=== PATIENT | female | born 1970 | race Caucasian/White ===

== ENCOUNTER → 2019-05-24 13:42 | Outpatient (CLI) | payer OTHER, SELFPAY | PROVIDERS: PCP Internal Medicine; Visit Provider Physician Assistant | DX: J02.9 Acute pharyngitis, unspecified (principal) | CPT/HCPCS: 87070 ==

== ENCOUNTER 2022-01-11 13:19 | Emergency (ER) | payer OTHER, SELFPAY ==
[2022-01-11 13:20] VITALS: BP 139/71; PULSE 91; RESP 17; TEMP 36.6; O2SAT 98; BMI 20.9
--- NOTE | 2022-01-11 13:31 | DI.RAD.S_ITS ---
PROCEDURE: XR HAND RT MIN 3V INDICATIONS: hand pain after injury TECHNIQUE: 3 views of the hand(s) acquired. COMPARISON: None. FINDINGS: Bones: No fractures or dislocations. Carpal bones are normally aligned. No suspicious bony lesions. Soft tissues: No suspicious soft tissue calcifications. IMPRESSION: No acute fracture. No osseous lesion. If symptoms and/or clinical suspicion for pathology persist, further assessment with repeat, or advanced imaging (e.g., CT, MRI, or bone scan) may be helpful for further assessment. Dictated by: Abhilash Corbett M.D. on 01/11/2022 at 14:14 Approved by: Abhilash Corbett M.D. on 01/11/2022 at 14:15
--- NOTE | 2022-01-11 13:45 | ED.UPPEXIN ---
HPI - Extremity Injury (Upper) General Chief Complaint: Extremity Injury, Upper Stated Complaint: R hand pain, Can't make a fist Time Seen by Provider: 01/11/22 13:25 Source: patient Mode of arrival: Ambulatory History of Present Illness HPI narrative: 51-year-old female daily smoker with noncontributory medical history presents with a chief complaint of right hand pain, limited range of motion of her fingers and what she perceives as a bump on the palmar surface of her hand. She states that she initially injured herself and has been having symptoms ever since July when she was pulling a starting cord for an industrial blower and the cord snapped out of her fingers. She states that since then she is been unable to make a fist or fully move her fingers. She had been seen and evaluated initially in the early summer and had an x-ray that was unremarkable. She has had little to no improvement in symptoms and presents today not only for ongoing symptoms but now she has noticed a small bump in the middle of her palm that is somewhat painful. She denies numbness, tingling or weakness. She denies any wrist, elbow or shoulder pain Related Data Allergies Allergy/AdvReac Type Severity Reaction Status Date / Time No Known Drug Allergies Allergy Verified 01/11/22 13:45 Review of Systems Review of Systems Narrative: GENERAL: Denies chills, fatigue, malaise, fever, sweats. HEENT: Denies sinus pain, ear pain, sore throat, difficulty swallowing, dizziness. RESPIRATORY: Denies dyspnea, cough, wheezing, hemoptysis, sputum. CARDIOVASCULAR: Denies chest pain, palpitations, orthopnea, edema, GASTROINTESTINAL: Denies nausea, vomiting, abdominal pain, diarrhea, constipation, melena. : Denies dysuria, frequency, incontinence, hematuria, urinary retention. MUSCULOSKELETAL: See HPI SKIN: Denies rash, skin lesions, or other NEUROLOGIC: Denies weakness, headache, numbness, change in speech, confusion, seizures, incoordination. PSYCHIATRIC: No concerning psychosocial issues. 12 point review of systems is negative except for those stated above Patient History Social History Smoking Status: Current every day smoker Smoking Status: Current every day smoker alcohol intake frequency: holidays/special occasions only Substance Use Type: marijuana Exam Narrative Exam Narrative: GEN: AOx3 and in mild distress EYES: Pupils are equal, round, and reactive to light and accommodation. Extraoccular muscles are intact bilaterally. There is no subconjunctival hemorrhage or exudate. CHEST: Lungs are clear to auscultation bilaterally and free of wheezes, rales, or rhonchi. Heart rate is regular rhythm, there are no murmurs, clicks, rubs, or gallops. There is no chest wall tenderness. ABD: Abdomen is soft and nontender. There is no guarding or rebound. Bowel sounds are normal in all 4 quadrants. There is no mass or organomegaly. EXT: No shoulder, elbow or wrist pain or swelling. Cap refill less than 2 seconds, sensation intact. Patient does have a small, minimally tender, palpable ?bump? in the center of her palmar surface, perhaps in line with her 3rd metacarpal. She does have decreased range of motion of 2nd 3rd and 4th fingers. She is able to flex each at the D IP and to some level at the PIP but is unable to make a fist. She states that this limited range of motion is mechanical and not secondary to pain. SKIN: Warm, pink, and dry. No erythema or rash Initial Vital Signs Initial Vital Signs: Vital Signs Temperature 98 F 01/11/22 13:20 Pulse Rate 91 H 01/11/22 13:20 Respiratory Rate 17 01/11/22 13:20 Blood Pressure 139/71 01/11/22 13:20 Pulse Oximetry 98 01/11/22 13:20 Oxygen Delivery Method 01/11/22 13:20 Course Orders Ordered: ED Orders 01/11/22 13:31 XR hand RT min 3V Stat Consultations Consultation #1: Discussed with on-call orthopedist, primarily to discuss whether splinting may be indicated. There is no recommendation for splinting given the chronicity of her injury. Recommendation to contact the office for follow-up Vital Signs Vital signs: Vital Signs - 8 hr 01/11/22 13:20 Temperature 98 F Pulse Rate 91 H Respiratory Rate 17 Blood Pressure 139/71 Pulse Oximetry 98 Oxygen Delivery Method Room Air Discharge Plan Departure Patient Disposition: Home Clinical Impression: Hand injury Instructions: DI for Hand Injury Activity Restrictions/Additional Instructions: *You have been diagnosed with [chronic right hand injury. Your history and physical exam are largely reassuring and there is no obvious evidence of fracture or dislocation on the x-ray. As we discussed there is some concern about the possibility of a tendinous injury relating to what happened in July, however, as we discussed I spoke with on-call orthopedist and given the chronicity of this injury there is no indication for immediate intervention.] *What to do: *Please continue to take your regular medications as directed. *Please follow up with your primary care provider in 2-3 days, call for an appointment. Let them know you were seen in the Emergency Department and that we ask that you be seen in follow up. We will electronically transmit a record of today's note if your PCP is in our system * also, as we discussed please contact [facility] to schedule follow-up. Let them know you were seen in the emergency department and we would like you seen in follow-up. *Return to Emergency Department if you should have any new, worsening or concerning symptoms, such as [fever greater than 101 F, shaking chills, worsening pain, persistent vomiting or other bothersome symptoms] Radiographic study has been interpreted by an emergency physician. The official diagnosis by radiology will be performed within the next 24 hours and should there be any change in outcome we will notify you of how to proceed. Referrals: Natasha Doty MD [Primary Care Provider] - Julio Forbes MD [Physician] - Visit Report Forms: Patient Portal/API
== END 2022-01-11 14:21 | disposition home or self-care (01) ==
PROVIDERS: Emergency Provider Emergency Medicine; PCP Internal Medicine
DX: S69.91XA Unspecified injury of right wrist, hand and finger(s), initial encounter (principal); Y99.0 Civilian activity done for income or pay
CPT/HCPCS: 73130; 99283